=== PATIENT | female | born 1995 | race Caucasian/White ===

== ENCOUNTER 2019-05-03 00:15 | Emergency (ER) | payer MEDICAID ==
[~2019-05-03] VITALS: Ht 157.5 cm; Wt 48.8 kg
[~2019-05-03 00:15] MED LIST: ACET325T33 PO; ACET500C5 PO; NAPR-985 PO; ONDA4TAB14 PO
[2019-05-03 00:31] VITALS: Ht 157.5 cm; Wt 48.8 kg
[2019-05-03] MEDS ORDERED: ONDANSETRON 4 MG INJ IV STA (00:54)
[2019-05-03] MEDS ORDERED: METOCLOPRAMIDE 10 MG INJ IV ONE (03:00)
[2019-05-03 03:48] VITALS: BP 111/63; PULSE 90; RESP 16
== END 2019-05-03 03:51 | disposition home or self-care (01) ==
LOC: FTE 00:15
DX: R10.2 Pelvic and perineal pain (principal); R19.7 Diarrhea, unspecified; R11.2 Nausea with vomiting, unspecified
CPT/HCPCS: 76856; 80053; 81001; 84702; 85025; 96374; 96375; J2405; J2765; Z7502